=== PATIENT | female | born 1935 | race Caucasian/White ===

== ENCOUNTER 2017-01-27 13:37 | Inpatient (IN) | payer MEDICARE, MEDICAID ==
[2017-01-27 13:38] VITALS: BMI 37.8
--- NOTE | 2017-01-27 14:15 | C.PDOC ---
History Of Present Illness 82 y/o female with a history of renal problems and a PSHx of AAA, presents to the ED with c/o left flank pain that occurred last night and SOB that began today. Pt notes walking 3 blocks this morning and could not walk back home because of SOB. Pt was seen in Dr. Mon office and was thought to have new onset atrial fibrillation with a rate 110/120. Pt was sent to the ED for admittance and to be referred to Dr. Arvizu the cardiologists. Pt notes SOB on exertion, heaviness on chest that is worse with exertion, but denies peripheral swelling, dizziness, lightheadedness, abdominal pain, fever, chills, or any other complaints. It is noted that she did hae an admission here for atrial fibrillation with SOB last year. She was discharged on Cardiazem, ASA and Plavix at that time. Time Seen by Provider: 01/27/17 13:42 Chief Complaint (Nursing): Respiratory Distress History Per: Patient History/Exam Limitations: no limitations Onset/Duration Of Symptoms: Days Current Symptoms Are (Timing): Still Present Severity: Mild Associated Symptoms: denies: Fever, Chills, Dizziness, Light-headedness, Other ( Abdominal pain) Past Medical History Reviewed: Historical Data, Nursing Documentation, Vital Signs Vital Signs: Last Vital Signs Temp 98.4 F 01/27/17 13:56 Pulse 103 H 01/27/17 13:56 Resp 16 01/27/17 13:56 BP 135/59 L 01/27/17 13:56 Pulse Ox 98 01/27/17 14:51 - Medical History PMH: Diverticulitis, HTN, Hypercholesterolemia, Hyperlipidemia, Chronic Kidney Disease (ONE KIDNEY) Surgical History: Cholecystectomy Other Surgeries: Left Nephrectomy - [facility] Procedures DX ULTRASOUND-HEAD/NECK (05/09/15) PERCUTAN NEEDLE BX OF THYROID GLAND (05/09/15) Family History: States: Unknown Family Hx - Social History Hx Alcohol Use: No Hx Substance Use: No - Immunization History Hx Tetanus Toxoid Vaccination: Yes Hx Influenza Vaccination: Yes Hx Pneumococcal Vaccination: Yes Review Of Systems Except As Marked, All Systems Reviewed And Found Negative. Constitutional: Negative for: Fever, Chills Cardiovascular: Positive for: Chest Pain (heaviness in chest on exertion) Respiratory: Positive for: Shortness of Breath, SOB with Excertion Neurological: Negative for: Dizziness, Other (Lightheadedness) Physical Exam - Physical Exam Appears: Non-toxic, No Acute Distress Skin: Warm, Dry Head: Atraumatic, Normacephalic Eye(s): bilateral: Normal Inspection Chest: Symmetrical Cardiovascular: Rhythm Irregular (Irregularly irregular of 110) Respiratory: Rales (Equal with bibasilar rales), No Rhonchi, No Wheezing Gastrointestinal/Abdominal: Soft, No Tenderness Extremity: No Pedal Edema (No peripheral edema) ED Course And Treatment - Laboratory Results Result Diagrams: 01/27/17 14:46 01/27/17 14:37 Lab Interpretation: Abnormal (Elevated WBC 12.6, BNP 1760, Troponin normal.) ECG: Interpreted By Me ECG Rhythm: Atrial Fibrillation, ST/T Changes (nonspecific) ECG Interpretation: No Acute Changes Rate From EC O2 Sat by Pulse Oximetry: 98 (Room air) Pulse Ox Interpretation: Normal - Radiology CXR: Interpreted by Me, Read By Radiologist CXR Interpretation: Yes: Infiltrates (RLL) Reevaluation Time: 15:54 Reassessment Condition: Improved (Patient remains comfortable) - Physician Consult Information Time Consulting Physician Contacted: 15:54 Physician Contacted: Daniel Baer Outcome Of Conversation: Patient to be admitted for mild CHF and adjustment of medication for Afib. Medical Decision Making Medical Decision Making: Plan: -EKG -CXR -Labs -IV fluids -Reassess and disposition Disposition - Disposition Disposition: HOSPITALIZED Disposition Time: 15:55 Condition: STABLE - POA Present On Arrival: None - Clinical Impression Clinical Impression: Afib, Congestive heart failure - Scribe Statement The provider has reviewed the documentation as recorded by the Scribpatel faust All medical record entries made by the Poloibe were at my direction and personally dictated by me. I have reviewed the chart and agree that the record accurately reflects my personal performance of the history, physical exam, medical decision making, and the department course for this patient. I have also personally directed, reviewed, and agree with the discharge instructions and disposition.
--- NOTE | 2017-01-27 14:23 | RAD ---
PROCEDURE: CHEST RADIOGRAPH, 1 VIEW HISTORY: Palpations COMPARISON: 01/15/2016 FINDINGS: LUNGS: The lungs are hyperinflated and there are chronic changes in both lungs. PLEURA: No pneumothorax or pleural fluid seen. CARDIOVASCULAR: There is persistent mild cardiomegaly and mild pulmonary venous congestion. OSSEOUS STRUCTURES: No significant abnormalities. VISUALIZED UPPER ABDOMEN: Normal. OTHER FINDINGS: None. IMPRESSION: COPD. No active pulmonary disease. Persistent mild cardiomegaly and mild pulmonary venous congestion.
[2017-01-27 14:51] LABS: BASO # 0.1 K/uL (0.0-0.2); BASO % 0.8 % (0.0-2.0); EOS # 0.1 K/uL (0.0-0.7); EOS % 0.5 % (0.0-4.0); HEMATOCRIT 36.9 % (34.0-47.0); LYMPH # 2.4 K/uL (1.0-4.3); LYMPH % 19.4 % (20.0-40.0); MEAN CELL VOLUME 83.7 fL (81.0-99.0); MEAN CORPUSCULAR HEMOGLOBIN 27.1 pg (27.0-31.0); MEAN CORPUSCULAR HGB CONC 32.4 g/dL (33.0-37.0); MEAN PLATELET VOLUME 8.8 fL (7.2-11.7); MONO # 0.7 K/uL (0.0-0.8); MONO % 5.5 % (0.0-10.0); RED CELL DISTRIBUTION WIDTH 15.6 % (11.5-14.5); WHITE BLOOD COUNT 12.3 K/uL (4.8-10.8)
[2017-01-27 14:54] LABS: INR 0.9; PARTIAL THROMBOPLASTIN TIME 23 SECONDS (21-34)
[2017-01-27 15:02] LABS: CHLORIDE 100 mmol/L (98-107)
[2017-01-27 15:03] LABS: POTASSIUM 4.2 mmol/L (3.6-5.2); SODIUM 142 mmol/L (132-148)
[2017-01-27 15:05] LABS: ALKALINE PHOSPHATASE 118 U/L (38-126); ALT/SGPT 26 U/L (9-52); AST/SGOT 21 U/L (14-36); BILIRUBIN,TOTAL 0.5 mg/dL (0.2-1.3); BLOOD UREA NITROGEN 12 mg/dL (7-17); CARBON DIOXIDE 32 mmol/L (22-30); GFR AFRICAN-AMERICAN > 60; GLUCOSE,RANDOM 82 mg/dL (65-105); TOTAL PROTEIN 7.6 g/dL (6.3-8.3)
[2017-01-27 15:22] LABS: T4 9.04 ug/dL (5.5-11.0)
[2017-01-27 15:51] LABS: T3 UPTAKE 38.1 % (23.0-41.0)
[2017-01-27] MEDS ORDERED: cefTRIAXone IV 1 gm in Dextros 50 ML IVPB ONE ×2 (15:57→16:13)
[2017-01-27] MEDS ORDERED: Azithromycin 500mg/250ML NS 250 ML IV SCH (16:00)
[2017-01-27] MEDS ORDERED: Azithromycin 500mg/250ML NS 250 ML IVPB ONE (16:13)
--- NOTE | 2017-01-27 16:21 | CP.PCM.HP ---
<Mackenzie Zhu - Last Filed: 01/27/17 17:20> History of Present Illness - History of Present Illness History of Present Illness: 82 y/o female with a history of renal problems and a PSHx of AAA, presents to the ED with c/o left flank pain that occurred last night and SOB that began today. Pt notes walking 3 blocks this morning and could not walk back home because of SOB. Pt was seen in Dr. Strange's office and was thought to have new onset atrial fibrillation with a rate 110/120. Per prior records patient has documented Afib. She is only on aspirin, no further anticoagulation. Pt was sent to the ED for admittance and to be referred to Dr. Arvizu the cardiologists. She admits to some pain in her back on the right side. Patient is a poor historian and was not able to answer more specific questions. Pt notes SOB on exertion, heaviness on chest that is worse with exertion, but denies peripheral swelling, dizziness, lightheadedness, abdominal pain, fever, chills, or any other complaints. HPI - HTN, HLD, AAA, one has one kdiney, A fib, CHF, COPD Surg - cholecystectomy, AAA repair Meds - Cardizem 120mg daily, Omeprazole 20mg daily, Plavix 75 mg PO daily, Lasix 40 mg PO daily, Breo 100/25, Simvastatin 20mg po daily, Nitro sublingual, Losartan 100mg PO daily All - NKDA Fam hx - DM Social - denies drugs, tobacco, alcohol, lives with daughter but the number she provided was incorrect Present on Admission - Present on Admission Any Indicators Present on Admission: No Review of Systems - Constitutional Constitutional: absent: Chills, Fever - EENT Eyes: absent: Blurred Vision, Change in Vision Ears: absent: Dizziness - Cardiovascular Cardiovascular: absent: Chest Pain, Chest Pain at Rest - Respiratory Respiratory: Cough, Dyspnea, Dyspnea on Exertion - Gastrointestinal Gastrointestinal: absent: Abdominal Pain, Constipation, Diarrhea, Nausea, Vomiting - Genitourinary Genitourinary: absent: Change in Urinary Stream, Difficulty Urinating - Neurological Neurological: absent: Numbness, Weakness Past Patient History - Infectious Disease Hx of Infectious Diseases: None - Past Medical History & Family History Past Medical History?: Yes - Past Social History Smoking Status: Never Smoked - CARDIAC Hx Hypercholesterolemia: Yes Hx Hypertension: Yes - PULMONARY Hx Respiratory Disorders: No - NEUROLOGICAL Hx Neurological Disorder: Yes (BRAIN ANNURYSM) - HEENT Hx HEENT Problems: No - RENAL Hx Chronic Kidney Disease: Yes (ONE KIDNEY) - ENDOCRINE/METABOLIC Hx Endocrine Disorders: Yes - HEMATOLOGICAL/ONCOLOGICAL Hx Blood Disorders: No - INTEGUMENTARY Hx Dermatological Problems: No - MUSCULOSKELETAL/RHEUMATOLOGICAL Hx Falls: No - GASTROINTESTINAL Hx Diverticulitis: Yes - GENITOURINARY/GYNECOLOGICAL Hx Genitourinary Disorders: Yes Other/Comment: one kidney - PSYCHIATRIC Hx Substance Use: No - SURGICAL HISTORY Hx Cholecystectomy: Yes - ANESTHESIA Hx Anesthesia: Yes Hx Anesthesia Reactions: No Hx Malignant Hyperthermia: No Meds Allergies/Adverse Reactions: Allergies Allergy/AdvReac Type Severity Reaction Status Date / Time No Known Allergies Allergy Verified 01/27/17 13:57 Physical Exam - Constitutional Appears: Non-toxic, No Acute Distress - Head Exam Head Exam: NORMAL INSPECTION, NORMOCEPHALIC - Eye Exam Eye Exam: EOMI, Normal appearance, PERRL Pupil Exam: NORMAL ACCOMODATION - ENT Exam ENT Exam: Mucous Membranes Moist - Respiratory Exam Respiratory Exam: Decreased Breath Sounds (more on R side), NORMAL BREATHING PATTERN. absent: Accessory Muscle Use, Respiratory Distress - Cardiovascular Exam Cardiovascular Exam: Irregular Rhythm, +S1, +S2. absent: JVD - GI/Abdominal Exam GI & Abdominal Exam: Normal Bowel Sounds, Soft. absent: Distended, Firm, Guarding, Tenderness Additional comments: Obese. Surgical scars present - Extremities Exam Extremities exam: Positive for: pedal edema. Negative for: calf tenderness Additional comments: 2+ edema b/l legs - Back Exam Back exam: NORMAL INSPECTION. absent: CVA tenderness (L), CVA tenderness (R), paraspinal tenderness - Neurological Exam Neurological exam: Alert, Oriented x3 - Psychiatric Exam Psychiatric exam: Normal Affect, Normal Mood - Skin Skin Exam: Dry, Intact, Normal Color, Warm Results - Vital Signs Recent Vital Signs: Last Vital Signs Temp 98.4 F 01/27/17 13:56 Pulse 103 H 01/27/17 13:56 Resp 16 01/27/17 13:56 BP 135/59 L 01/27/17 13:56 Pulse Ox 98 01/27/17 15:55 - Labs Result Diagrams: 01/27/17 14:46 01/27/17 14:37 Labs: Laboratory Results - last 24 hr 01/27/17 01/27/17 14:37 14:46 WBC 12.3 H D RBC 4.41 Hgb 11.9 Hct 36.9 MCV 83.7 MCH 27.1 MCHC 32.4 L RDW 15.6 H Plt Count 236 MPV 8.8 Neut % (Auto) 73.8 Lymph % (Auto) 19.4 L Dickinson % (Auto) 5.5 Eos % (Auto) 0.5 Baso % (Auto) 0.8 Neut # 9.1 H Lymph # 2.4 Dickinson # 0.7 Eos # 0.1 Baso # 0.1 PT 10.7 INR 0.9 APTT 23 D-Dimer, Quantitative < 200 Sodium 142 Potassium 4.2 Chloride 100 Carbon Dioxide 32 H Anion Gap 14 BUN 12 Creatinine 0.8 Est GFR ( Amer) > 60 Est GFR (Non-Af Amer) > 60 Random Glucose 82 Calcium 9.0 Total Bilirubin 0.5 AST 21 ALT 26 Alkaline Phosphatase 118 Troponin I < 0.0120 NT-Pro-B Natriuret Pep 1760 H Total Protein 7.6 Albumin 3.7 Globulin 3.9 Albumin/Globulin Ratio 1.0 Thyroxine (T4) 9.04 T3 Uptake 38.1 TSH 3rd Generation 0.60 Assessment & Plan - Assessment and Plan (Free Text) Assessment: Pneumonia Xray - possible RLL infiltrate Zithromax 500 mg IVPB daily Rocephin 1 gram IBPB daily Duonebs prn SOB f/u mycoplasma, legionella, strep WBC 12.3, afebrile f/u blood cultures f/u UA f/u sputum culture f/u am labs, procalcitonin NC o2 - patient saturating low 90s,/high 80s but desaturates when she is asked to moved BIPAP prn Congestive heart failure, exacerbation f/u Echo Trop negative x 1, will trend EKG - Afib rate 100, no acute changes BNP - 1760 Chest X ray - cardiomegaly, mild venous chest congestion, possible infiltrate daily weights, monitor ins and outs Losartan 100mg PO daily Lasix 40 mg PO daily ASA 81 mg PO daily Plavix 75 mg po daily Atrial Fibrillation Rate controlled Cardiology consulted, Dr. Arvizu, help appreciated Cardizem 120 mg PO daily ASA 81 mg PO daily EKG - Afib rate 100, no acute changes Patient not on anticoagulation at home f/u am labs COPD O2 via NC f/u ABG Advair 250/50 Duonebs prn Hypertension Monitor BP Continue home losartan Hyperlipidemia f/u lipid panel Crestor 10mg PO HS Prophylactic Measures Pepcid 20mg PO bid Heart healthy diet Call placed to Daughter at 5:30 PM but number did not work. Will reattempt tomorrow. <Daniel Baer - Last Filed: 01/28/17 09:31> Results - Vital Signs Recent Vital Signs: Last Vital Signs Temp 98.4 F 01/27/17 13:56 Pulse 103 H 01/27/17 13:56 Resp 16 01/27/17 13:56 BP 135/59 L 01/27/17 13:56 Pulse Ox 98 01/27/17 15:55 - Labs Result Diagrams: 01/28/17 06:04 01/28/17 06:04 Labs: Laboratory Results - last 24 hr 01/27/17 18:13 Puncture Site Lra pCO2 50 H pO2 105 H HCO3 30.2 H ABG pH 7.42 ABG Total CO2 33.9 H ABG O2 Saturation 99.4 H ABG Base Excess 6.8 H ABG Hemoglobin 11.2 L ABG Carboxyhemoglobin 2.2 H POC ABG HHb (Measured) 0.6 ABG Methemoglobin 1.6 Amrit Test Pos A-a O2 Difference 61.0 Respiratory Index 0.6 Hgb O2 Saturation 95.5 Liter Flow 3.0 FiO2 32.0 Attending/Attestation - Attestation I have personally seen and examined this patient.: Yes I have fully participated in the care of the patient.: Yes I have reviewed all pertinent clinical information: Yes Notes (Text): 01/28/17 09:31 Patient was seen and examined at bedside with the resident Patient is started on treatment for pneumonia We will request cardiology evaluation for a to fibrillation We will follow up recommendations of cardiology I discussed the plan of care with the resident and agree with the above assessment and plan by the resident
[2017-01-27 18:16] LABS: ABG ALLEN TEST POS; ARTERIAL BLOOD HGB O2 SAT 95.5 % (95.0-98.0); CARBOXYHEMOGLOBIN 2.2 % (0.5-1.5); DRAW SITE LRA; HHB 0.6 % (0.0-5.0); METHEMOGLOBIN 1.6 % (0.0-3.0)
--- NOTE | 2017-01-27 18:52 | CP.PCM.CON ---
History of Present Illness - History of Present Illness History of Present Illness: Patient is a 82 year old female with PMH HTN hypercholesterolemia who presents with progressive dyspnea. Patient states symptoms began about 2 weeks ago, and the patient developed progression of her symptoms. The patient was found to be in atrial fibrillation. The patient has no recollection of atrial fibrillation. She denies chest pain at presnt. Review of Systems - Constitutional Constitutional: absent: As Per HPI, Anorexia, Chills, Daytime Sleepiness, Excessive Sweating, Fatigue, Fever, Frequent Falls, Headache, Increased Appetite , Lethargy, Malaise, Night Sweats, Snoring, Sleep Apnea, Weight Gain, Weight Loss, Weakness, Other - EENT Eyes: absent: As Per HPI, Blind Spots, Blurred Vision, Change in Vision, Decreased Night Vision, Diplopia, Discharge, Dry Eye, Exophthalmos, Floaters, Irritation, Itchy Eyes, Loss of Peripheral Vision, Pain, Photophobia, Requires Corrective Lenses, Sees Flashes, Spots in Vision, Tunnel Vision, Other Visual Disturbances, Loss of Vision, Other Ears: absent: As Per HPI, Decreased Hearing, Ear Discharge, Ear Pain, Tinnitus, Abnormal Hearing, Disequilibrium, Dizziness, Other Nose/Mouth/Throat: absent: As Per HPI, Epistaxis, Nasal Congestion, Nasal Discharge, Nasal Obstruction, Nasal Trauma, Nose Pain, Post Nasal Drip, Sinus Pain, Sinus Pressure, Bleeding Gums, Change in Voice, Dental Pain, Dry Mouth, Dysphagia, Halitosis, Hoarsness, Lip Swelling, Mouth Lesions, Mouth Pain, Odynophagia, Sore Throat, Throat Swelling, Tongue Swelling, Facial Pain, Neck Pain, Neck Mass, Other - Breasts Breasts: absent: As Per HPI, Change in Shape, Mass, Pain, Nipple Discharge, Nipple Inversion, Skin Changes, Swelling, Other - Cardiovascular Cardiovascular: Dyspnea - Respiratory Respiratory: Dyspnea - Genitourinary Genitourinary: absent: As Per HPI, Change in Urinary Stream, Difficulty Urinating, Dysuria, Flank Pain, Hematuria, Pyuria, Nocturia, Urinary Incontinence, Urinary Frequency, Urinary Hesitance, Urinary Urgency, Voiding Freq/Small Amts, Freq UTI, Hx Renal/Bladder Calculi, Hx /Renal Surgery, Bladder Distension, Other - Musculoskeletal Musculoskeletal: absent: As Per HPI, Abnormal Gait, Arthralgias, Atrophy, Back Pain, Deformity, Joint Swelling, Limited Range of Motion, Loss of Height, Muscle Cramps, Muscle Weakness, Myalgias, Neck Pain, Numbness, Radiating Pain into Limb, Stiffness, Tingling, Other - Integumentary Integumentary: absent: As Per HPI, Acne, Alopecia, Bleeding Lesions, Change in Hair, Change in Nails, Change in Pigmentation, Changing Lesions, Dry Skin, Erythema, Furuncle, Hirsutism, Lesions, New Lesions, Non-Healing Lesions, Photosensitivity, Pruritus, Rash, Skin Pain, Skin Ulcer, Sores, Striae, Swelling , Unusual Bruising, Wounds, Jaundice, Other - Neurological Neurological: absent: As Per HPI, Abnormal Gait, Abnormal Hearing, Abnormal Movements, Abnormal Speech, Behavioral Changes, Burning Sensations, Confusion, Convulsions, Disequilibrium, Dizziness, Numbness, Focal Weakness, Frequent Falls , Headaches, Lack of Coordination, Loss of Vision, Memory Loss, Paresthesias, Radicular Pain, Restless Legs, Sensory Deficit, Syncope, Tingling, Tremor, Vertigo, Weakness, Other Visual Disturbances, Other - Psychiatric Psychiatric: absent: As Per HPI, Abnormal Sleep Pattern, Anhedonia, Anxiety, Auditory Hallucinations, Behavioral Changes, Change in Appetite, Change in Libido, Confusion, Depression, Difficulty Concentrating, Hallucinations, Homicidal Ideation, Hopelessness, Irritability, Memory Loss, Mood Swings, Panic Attacks, Paranoia, Suicidal Ideation, Visual Hallucinations, Tactile Hallucinations, Other - Endocrine Endocrine: absent: As Per HPI, Change in Body Appearance, Change in Libido, Cold Intolorance, Deepening of Voice, Excessive Sweating, Fatigue, Flushing, Heat Intolorance, Increase in Ring/Shoe/Hat Size, Palpitations, Polydipsia, Polyphagia, Polyuria, Other - Hematologic/Lymphatic Hematologic: absent: As Per HPI, Easy Bleeding, Easy Bruising, Lymphadenopathy, Other Past Patient History - Infectious Disease Hx of Infectious Diseases: None - Past Medical History & Family History Past Medical History?: Yes - Past Social History Smoking Status: Never Smoked - CARDIAC Hx Hypercholesterolemia: Yes Hx Hypertension: Yes - PULMONARY Hx Respiratory Disorders: No - NEUROLOGICAL Hx Neurological Disorder: Yes (BRAIN ANNURYSM) - HEENT Hx HEENT Problems: No - RENAL Hx Chronic Kidney Disease: Yes (ONE KIDNEY) - ENDOCRINE/METABOLIC Hx Endocrine Disorders: Yes - HEMATOLOGICAL/ONCOLOGICAL Hx Blood Disorders: No - INTEGUMENTARY Hx Dermatological Problems: No - MUSCULOSKELETAL/RHEUMATOLOGICAL Hx Falls: No - GASTROINTESTINAL Hx Diverticulitis: Yes - GENITOURINARY/GYNECOLOGICAL Hx Genitourinary Disorders: Yes Other/Comment: one kidney - PSYCHIATRIC Hx Substance Use: No - SURGICAL HISTORY Hx Cholecystectomy: Yes - ANESTHESIA Hx Anesthesia: Yes Hx Anesthesia Reactions: No Hx Malignant Hyperthermia: No Meds Allergies/Adverse Reactions: Allergies Allergy/AdvReac Type Severity Reaction Status Date / Time No Known Allergies Allergy Verified 01/27/17 13:57 - Medications Medications: Current Medications Albuterol/Ipratropium (Duoneb 3 Mg/0.5 Mg (3 Ml) Ud) 3 ml INH RQ6 PRN PRN Reason: Shortness of Breath Amitriptyline HCl (Elavil) 50 mg PO HS [facility] Aspirin (Aspirin Chewable) 81 mg PO DAILY [facility] Clopidogrel Bisulfate (Plavix) 75 mg PO DAILY [facility] Diltiazem HCl (Cardizem Cd) 120 mg PO DAILY [facility] Famotidine (Pepcid) 20 mg PO BID [facility] Furosemide (Lasix) 40 mg PO DAILY [facility] Heparin Sodium (Porcine) (Heparin) 5,000 units SC Q8H [facility] Azithromycin (Zithromax 500mg In Ns Addvantage) 250 mls @ 166.667 mls/hr IV STAT [facility] Last Admin: 01/27/17 17:04 Dose: 166.667 mls/hr Azithromycin 500 mg/ Sodium (Chloride) 250 mls @ 250 mls/hr IVPB DAILY [facility] Ceftriaxone Sodium 1 gm/ (Sodium Chloride) 100 mls @ 100 mls/hr IVPB DAILY [facility] Losartan Potassium (Cozaar) 100 mg PO DAILY [facility] Fluticasone/Salmeterol (Advair Diskus 250/50) 1 puff INH RQ12 [facility] Physical Exam - Constitutional Appears: Non-toxic - Head Exam Head Exam: NORMAL INSPECTION - Eye Exam Eye Exam: Normal appearance - ENT Exam ENT Exam: Mucous Membranes Moist - Neck Exam Neck exam: Positive for: Full Rom - Respiratory Exam Respiratory Exam: NORMAL BREATHING PATTERN - Cardiovascular Exam Cardiovascular Exam: Irregular Rhythm - GI/Abdominal Exam GI & Abdominal Exam: Normal Bowel Sounds - Rectal Exam Rectal Exam: Deferred - Extremities Exam Extremities exam: Positive for: pedal edema - Back Exam Back exam: NORMAL INSPECTION - Neurological Exam Neurological exam: Alert, Oriented x3 - Psychiatric Exam Psychiatric exam: Normal Affect - Skin Skin Exam: Normal Color Results - Vital Signs Recent Vital Signs: Last Vital Signs Temp 98.4 F 01/27/17 13:56 Pulse 103 H 01/27/17 13:56 Resp 16 01/27/17 13:56 BP 135/59 L 01/27/17 13:56 Pulse Ox 98 01/27/17 15:55 - Labs Result Diagrams: 01/27/17 14:46 01/27/17 14:37 Labs: Laboratory Results - last 24 hr 01/27/17 18:13 Puncture Site Lra pCO2 50 H pO2 105 H HCO3 30.2 H ABG pH 7.42 ABG Total CO2 33.9 H ABG O2 Saturation 99.4 H ABG Base Excess 6.8 H ABG Hemoglobin 11.2 L ABG Carboxyhemoglobin 2.2 H POC ABG HHb (Measured) 0.6 ABG Methemoglobin 1.6 Amrit Test Pos A-a O2 Difference 61.0 Respiratory Index 0.6 Hgb O2 Saturation 95.5 Liter Flow 3.0 FiO2 32.0 - EKG Data EKG Interpreted by: Myself Assessment & Plan (1) Afib Assessment and Plan: uncleasr duration. recommend anticoagulation with lovenox. check echocardiogram. Status: Acute Priority: High (2) Dyspnea Assessment and Plan: will evaluate lV function with echocardiogram Status: Acute (3) HTN (hypertension) Assessment and Plan: will assist with management Status: Chronic Priority: Medium
[2017-01-27 21:21] LABS: RBC URINE < 1 /hpf (0-3); URINE BILIRUBIN NEGATIVE (NEGATIVE); URINE BLOOD NEGATIVE (NEGATIVE); URINE COLOR Yellow (YELLOW); URINE GLUCOSE (UA) NORMAL (Normal); URINE KETONE NEGATIVE (NEGATIVE); URINE LEUKOCYTE ESTERASE NEG Leu/uL (Negative); URINE PROTEIN 1+ mg/dL (NEGATIVE); URINE UROBILINOGEN NORMAL mg/dL (0.2-1.0); WBC URINE 1 /hpf (0-5)
[2017-01-27] MEDS: Enoxaparin 80 mg Syringe SC SCH (21:31)
[2017-01-28 06:23] LABS: BASO # 0.1 K/uL (0.0-0.2); BASO % 0.5 % (0.0-2.0); EOS # 0.1 K/uL (0.0-0.7); EOS % 0.7 % (0.0-4.0); HEMATOCRIT 33.6 % (34.0-47.0); LYMPH # 2.4 K/uL (1.0-4.3); LYMPH % 18.3 % (20.0-40.0); MEAN CELL VOLUME 84.3 fL (81.0-99.0); MEAN CORPUSCULAR HEMOGLOBIN 28.2 pg (27.0-31.0); MEAN CORPUSCULAR HGB CONC 33.5 g/dL (33.0-37.0); MEAN PLATELET VOLUME 8.9 fL (7.2-11.7); MONO # 0.6 K/uL (0.0-0.8); MONO % 4.8 % (0.0-10.0); RED CELL DISTRIBUTION WIDTH 15.4 % (11.5-14.5); WHITE BLOOD COUNT 13.3 K/uL (4.8-10.8)
[2017-01-28 06:38] LABS: CHLORIDE 98 mmol/L (98-107); POTASSIUM 4.2 mmol/L (3.6-5.2); SODIUM 141 mmol/L (132-148)
[2017-01-28 06:40] LABS: BILIRUBIN,TOTAL 0.7 mg/dL (0.2-1.3); CARBON DIOXIDE 32 mmol/L (22-30); CHOLESTEROL 186 mg/dL (0-199); GFR AFRICAN-AMERICAN > 60
[2017-01-28 06:41] LABS: ALB/GLOB RATIO 1.1 (1.0-2.1); ALKALINE PHOSPHATASE 104 U/L (38-126); ALT/SGPT 20 U/L (9-52); AST/SGOT 28 U/L (14-36); BLOOD UREA NITROGEN 12 mg/dL (7-17); GLUCOSE,RANDOM 108 mg/dL (65-105); PHOSPHOROUS 4.6 mg/dL (2.5-4.5); TOTAL PROTEIN 6.8 g/dL (6.3-8.3)
[2017-01-28 06:42] LABS: CALCIUM 8.5 mg/dl (8.6-10.4)
[2017-01-28] MEDS: Albuterol-Ipratrop 3 mg / 0.5 (3 ml) UD INH PRN (08:35)
[2017-01-28] MEDS: Enoxaparin 80 mg Syringe SC SCH ×2 (09:49→21:56)
[2017-01-28] MEDS ORDERED: diltiaZEM 120 mg/24 Hours CD Cap PO SCH (10:00)
[2017-01-28] MEDS: Azithromycin 500 MG in Sodium Chloride 0.9% 250 ML IVPB SCH (11:20)
--- NOTE | 2017-01-28 15:30 | CP.PCM.PN ---
Subjective - Date & Time of Evaluation Date of Evaluation: 01/28/17 Time of Evaluation: 12:20 - Subjective Subjective: patient seen in echo lab. Objective - Vital Signs/Intake and Output Vital Signs (last 24 hours): Temp Pulse Resp BP Pulse Ox 99.5 F 110 H 20 158/94 H 96 01/28/17 07:35 01/28/17 08:44 01/28/17 07:35 01/28/17 09:44 01/28/17 07:35 Intake and Output: 01/28/17 01/28/17 06:59 18:59 Intake Total 240 500 Balance 240 500 - Medications Medications: Current Medications Albuterol/Ipratropium (Duoneb 3 Mg/0.5 Mg (3 Ml) Ud) 3 ml INH RQ6 PRN PRN Reason: Shortness of Breath Last Admin: 01/28/17 08:35 Dose: 3 ml Apixaban (Eliquis) 5 mg PO BID [facility] Aspirin (Aspirin Chewable) 81 mg PO DAILY [facility] Last Admin: 01/28/17 09:45 Dose: 81 mg Clopidogrel Bisulfate (Plavix) 75 mg PO DAILY [facility] Last Admin: 01/28/17 09:44 Dose: 75 mg Diltiazem HCl (Cardizem Cd) 240 mg PO DAILY [facility] Enoxaparin Sodium (Lovenox) 80 mg SC Q12 [facility] Last Admin: 01/28/17 09:49 Dose: 80 mg Famotidine (Pepcid) 20 mg PO BID [facility] Last Admin: 01/28/17 09:45 Dose: 20 mg Furosemide (Lasix) 40 mg PO DAILY [facility] Last Admin: 01/28/17 09:44 Dose: 40 mg Azithromycin 500 mg/ Sodium (Chloride) 250 mls @ 250 mls/hr IVPB DAILY [facility] Last Admin: 01/28/17 11:20 Dose: 250 mls/hr Ceftriaxone Sodium 1 gm/ (Sodium Chloride) 100 mls @ 100 mls/hr IVPB DAILY [facility] Last Admin: 01/28/17 09:46 Dose: 100 mls/hr Losartan Potassium (Cozaar) 100 mg PO DAILY [facility] Last Admin: 01/28/17 09:44 Dose: 100 mg Fluticasone/Salmeterol (Advair Diskus 250/50) 1 puff INH RQ12 [facility] - Labs Labs: 01/28/17 06:04 01/28/17 06:04 PT 10.7 SECONDS (9.7-12.2) 01/27/17 14:37 INR 0.9 01/27/17 14:37 APTT 23 SECONDS (21-34) 01/27/17 14:37 - Constitutional Appears: Non-toxic - Head Exam Head Exam: NORMAL INSPECTION - Eye Exam Eye Exam: Normal appearance - ENT Exam ENT Exam: Mucous Membranes Moist - Neck Exam Neck Exam: Full ROM - Respiratory Exam Respiratory Exam: Decreased Breath Sounds - Cardiovascular Exam Cardiovascular Exam: Irregular Rhythm - GI/Abdominal Exam GI & Abdominal Exam: Normal Bowel Sounds - Rectal Exam Rectal Exam: Deferred - Extremities Exam Extremities Exam: absent: Pedal Edema - Back Exam Back Exam: NORMAL INSPECTION - Neurological Exam Neurological Exam: Alert - Psychiatric Exam Psychiatric exam: Normal Affect - Skin Skin Exam: Normal Color Assessment and Plan (1) Afib Assessment & Plan: will start Eliquis. increase cardizem. echocardiogram reviewed. The left ventricular function i normal, there is biatrial enlargement. The atrial fibrillation is likely chronic. Status: Acute (2) Dyspnea Status: Acute (3) HTN (hypertension) Assessment & Plan: blood pressure control Status: Chronic
[2017-01-28] MEDS: diltiaZEM 240 mg/24 Hours CD Cap PO SCH (17:23)
--- NOTE | 2017-01-28 17:54 | CP.PCM.PN ---
<MarkoMackenzie - Last Filed: 01/28/17 19:30> Subjective - Date & Time of Evaluation Date of Evaluation: 01/28/17 Time of Evaluation: 07:50 - Subjective Subjective: PGY [address] Baer: Patient was seen and examined at bedside this morning. She is more alert and awake today. She states her SOB has improved but she is still coughing and producing phlegm. She denies chest pain, or feeling like her heart is beating fast. She is tolerating her diet and had a BM last night. She is out of bed to chair. She states that her belly is slightly painful "where my hernia is". She has no other complaints such as headache, fevers/chills, N/V, changes in vision, pain or swelling in the extremities, urinary complaints. Objective - Vital Signs/Intake and Output Vital Signs (last 24 hours): Temp Pulse Resp BP Pulse Ox 98.7 F 100 H 20 120/63 99 01/28/17 15:51 01/28/17 15:51 01/28/17 15:51 01/28/17 15:51 01/28/17 15:51 Intake and Output: 01/28/17 01/28/17 06:59 18:59 Intake Total 240 500 Balance 240 500 - Medications Medications: Current Medications Albuterol/Ipratropium (Duoneb 3 Mg/0.5 Mg (3 Ml) Ud) 3 ml INH RQ6 PRN PRN Reason: Shortness of Breath Last Admin: 01/28/17 08:35 Dose: 3 ml Apixaban (Eliquis) 5 mg PO BID [facility] Last Admin: 01/28/17 17:23 Dose: 5 mg Aspirin (Aspirin Chewable) 81 mg PO DAILY [facility] Last Admin: 01/28/17 09:45 Dose: 81 mg Clopidogrel Bisulfate (Plavix) 75 mg PO DAILY [facility] Last Admin: 01/28/17 09:44 Dose: 75 mg Diltiazem HCl (Cardizem Cd) 240 mg PO DAILY [facility] Last Admin: 01/28/17 17:23 Dose: 240 mg Enoxaparin Sodium (Lovenox) 80 mg SC Q12 [facility] Last Admin: 01/28/17 09:49 Dose: 80 mg Famotidine (Pepcid) 20 mg PO BID [facility] Last Admin: 01/28/17 17:23 Dose: 20 mg Furosemide (Lasix) 40 mg PO DAILY [facility] Last Admin: 01/28/17 09:44 Dose: 40 mg Azithromycin 500 mg/ Sodium (Chloride) 250 mls @ 250 mls/hr IVPB DAILY [facility] Last Admin: 01/28/17 11:20 Dose: 250 mls/hr Ceftriaxone Sodium 1 gm/ (Sodium Chloride) 100 mls @ 100 mls/hr IVPB DAILY [facility] Last Admin: 01/28/17 09:46 Dose: 100 mls/hr Losartan Potassium (Cozaar) 100 mg PO DAILY [facility] Last Admin: 01/28/17 09:44 Dose: 100 mg Fluticasone/Salmeterol (Advair Diskus 250/50) 1 puff INH RQ12 [facility] - Labs Labs: 01/28/17 06:04 01/28/17 06:04 PT 10.7 SECONDS (9.7-12.2) 01/27/17 14:37 INR 0.9 01/27/17 14:37 APTT 23 SECONDS (21-34) 01/27/17 14:37 - Constitutional Appears: Non-toxic, No Acute Distress - Head Exam Head Exam: ATRAUMATIC, NORMAL INSPECTION - Eye Exam Eye Exam: EOMI, Normal appearance, PERRL Pupil Exam: NORMAL ACCOMODATION - ENT Exam ENT Exam: Mucous Membranes Moist - Respiratory Exam Respiratory Exam: Decreased Breath Sounds, Rales, NORMAL BREATHING PATTERN. absent: Accessory Muscle Use, Chest Wall Tenderness, Respiratory Distress Additional comments: More R sided, moving air better today, better respiratory effort - Cardiovascular Exam Cardiovascular Exam: REGULAR RHYTHM, +S1, +S2 - GI/Abdominal Exam GI & Abdominal Exam: Soft, Normal Bowel Sounds. absent: Distended, Firm, Guarding Additional comments: obese - Extremities Exam Extremities Exam: Normal Inspection, Pedal Edema. absent: Calf Tenderness - Back Exam Back Exam: NORMAL INSPECTION. absent: CVA tenderness (L), CVA tenderness (R), paraspinal tenderness - Neurological Exam Neurological Exam: Alert, Awake, CN II-XII Intact, Oriented x3 - Psychiatric Exam Psychiatric exam: Normal Affect, Normal Mood - Skin Skin Exam: Dry, Intact, Normal Color, Warm Assessment and Plan - Assessment and Plan (Free Text) Assessment: Pneumonia Xray - possible RLL infiltrate Zithromax 500 mg IVPB daily Rocephin 1 gram IBPB daily Duonebs prn SOB f/u mycoplasma, legionella, strep WBC 12.3, afebrile f/u blood cultures f/u UA f/u sputum culture f/u am labs, procalcitonin NC o2 - patient saturating low 90s,/high 80s but desaturates when she is asked to moved --> improving today BIPAP prn Congestive heart failure, exacerbation Echo - The left ventricular function is normal, there is biatrial enlargement. The atrial fibrillation is likely chronic Trop negative x 3 EKG - Afib rate 100, no acute changes BNP - 1760 Chest X ray - cardiomegaly, mild venous chest congestion, possible infiltrate daily weights, monitor ins and outs Losartan 100mg PO daily Lasix 40 mg PO daily ASA 81 mg PO daily Plavix 75 mg po daily Atrial Fibrillation Rate controlled Cardiology consulted, Dr. Arvizu, help appreciated Cardizem 240 mg PO daily - increased today ASA 81 mg PO daily EKG - Afib rate 100, no acute changes Patient not on anticoagulation at home Will Add Eliquis 5mg PO BID and stop Lovenox f/u am labs COPD O2 via NC ABG ph 7.42, HC03 30.2, p02 105, pC02 50 Advair 250/50 Duonebs prn Hypertension Monitor BP Continue home losartan Hyperlipidemia Lipid panel wnl Crestor 10mg PO HS Prophylactic Measures Pepcid 20mg PO bid Eliquid 5 mg PO BID Heart healthy diet Spoke to patient's relatives today while they were visiting in hospital. Tyra , her daughter was present. She stated that she lives with her mom and helps take care of her. She is very involved in her mother's care. Her mother needs assistance at home with ADLs but is pretty functional and can walk on her own without the assistance of a cane or walker. She states that her mother has a kidney removed over 30 years ago "for an aneurysm and almost ". She also stated they were not aware that the patient has A fib. Patient has been taking asa and plavix at home but not on a blood thinner. 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 No sick contact at home and no recent hospitalizations. She was given the drug discount card for Eliquis. The family is aware of the patient's hospital course and the need to be on Eliquis for AFib. <Daniel Baer M - Last Filed: 01/29/17 13:33> Objective - Vital Signs/Intake and Output Vital Signs (last 24 hours): Temp Pulse Resp BP Pulse Ox 98.6 F 99 H 18 113/76 97 01/29/17 07:30 01/29/17 08:00 01/29/17 07:30 01/29/17 09:42 01/29/17 07:30 Intake and Output: 01/29/17 01/29/17 06:59 18:59 Intake Total 120 Balance 120 - Medications Medications: Current Medications Albuterol/Ipratropium (Duoneb 3 Mg/0.5 Mg (3 Ml) Ud) 3 ml INH RQ6 PRN PRN Reason: Shortness of Breath Last Admin: 01/28/17 08:35 Dose: 3 ml Apixaban (Eliquis) 5 mg PO BID [facility] Last Admin: 01/29/17 10:44 Dose: 5 mg Aspirin (Aspirin Chewable) 81 mg PO DAILY [facility] Last Admin: 01/29/17 09:42 Dose: 81 mg Clopidogrel Bisulfate (Plavix) 75 mg PO DAILY [facility] Last Admin: 01/29/17 09:42 Dose: 75 mg Diltiazem HCl (Cardizem Cd) 240 mg PO DAILY [facility] Last Admin: 01/29/17 09:42 Dose: 240 mg Enoxaparin Sodium (Lovenox) 80 mg SC Q12 [facility] Last Admin: 01/29/17 09:43 Dose: 80 mg Famotidine (Pepcid) 20 mg PO BID [facility] Last Admin: 01/29/17 09:39 Dose: 20 mg Furosemide (Lasix) 40 mg PO DAILY [facility] Last Admin: 01/29/17 09:42 Dose: 40 mg Azithromycin 500 mg/ Sodium (Chloride) 250 mls @ 250 mls/hr IVPB DAILY [facility] Last Admin: 01/29/17 09:33 Dose: 250 mls/hr Ceftriaxone Sodium 1 gm/ (Sodium Chloride) 100 mls @ 100 mls/hr IVPB DAILY [facility] Last Admin: 01/29/17 09:33 Dose: 100 mls/hr Losartan Potassium (Cozaar) 100 mg PO DAILY [facility] Last Admin: 01/29/17 09:43 Dose: 100 mg Fluticasone/Salmeterol (Advair Diskus 250/50) 1 puff INH RQ12 [facility] Last Admin: 01/29/17 08:49 Dose: Not Given - Labs Labs: 01/29/17 05:58 01/29/17 05:58 PT 10.7 SECONDS (9.7-12.2) 01/27/17 14:37 INR 0.9 01/27/17 14:37 APTT 23 SECONDS (21-34) 01/27/17 14:37 Attending/Attestation - Attestation I have personally seen and examined this patient.: Yes I have fully participated in the care of the patient.: Yes I have reviewed all pertinent clinical information, including history, physical exam and plan: Yes Notes (Text): 01/29/17 13:32 Patient was seen and examined at bedside with the resident Shortness of breath is improving Cardiology evaluation seen in appreciated Patient started on anticoagulation I discussed the plan of care with the resident and I agree with the above assessment and plan by the resident
--- NOTE | 2017-01-28 20:43 | CARD ---
APPROVED REPORT EXAM: Two-dimensional and M-mode echocardiogram with Doppler and color Doppler. Other Information Quality : GoodRhythm : INDICATION Dyspnea Atrial Fibrillation Congestive Heart Failure COPD MX OF ABD AAA RISK FACTORS Hypertension Hyperlipidemia M-Mode DIMENSIONS RVDd2.26 (2.1-3.2cm)Left Atrium (MM)4.61 (2.5-4.0cm) IVSd1.05 (0.7-1.1cm)Aortic Root2.26 (2.2-3.7cm) LVDd4.72 (4.0-5.6cm)Aortic Cusp Exc.1.17 (1.5-2.0cm) PWd0.94 (0.7-1.1cm)FS (%) 34 % LVDs3.12 (2.0-3.8cm)LVEF (%)63 (>50%) Aortic Valve AoV Peak Dzxzzaai235.0cm/Zeeshan Peak GR.9mmHg Mitral Valve MV E Jhbokaqg69.1cm/sMV A Pigtugla81.7cm/sE/A ratio3.4 TDI E/Lateral E'0.0E/Medial E'0.0 Tricuspid Valve TR Peak [id number]/sTR Peak Gr.22xbDfRCDK03lfBk LEFT VENTRICLE The left ventricle is normal size. There is normal left ventricular wall thickness. The left ventricular function is normal. The left ventricular ejection fraction is within the normal range. About 55% No regional wall motion abnormalities noted. The left ventricular diastolic function is indeterminate. No left ventricle thrombus noted on this study. There is no ventricular septal defect visualized. There is no left ventricular aneurysm. There is no mass noted in the left ventricle. RIGHT VENTRICLE The right ventricle is normal size. There is normal right ventricular wall thickness. The right ventricular systolic function is normal. ATRIA The left atrium size is mildly dilated. The right atrium size is mildly dilated. The interatrial septum is intact with no evidence for an atrial septal defect. AORTIC VALVE The aortic valve is normal in structure and function. No aortic regurgitation is present. There is no aortic valvular stenosis. There is no aortic valvular vegetation. MITRAL VALVE The mitral valve is normal in structure and function. There is no evidence of mitral valve prolapse. There is no mitral valve stenosis. There is no mitral valve regurgitation noted. TRICUSPID VALVE The tricuspid valve is normal in structure and function. There ismildo tricuspid valve regurgitation noted. Estiamted PA systolic pressure is 53 mm Hg. There is no tricuspid valve prolapse or vegetation. There is no tricuspid valve stenosis. PULMONIC VALVE The pulmonary valve is normal in structure and function. There is no pulmonic valvular regurgitation. There is no pulmonic valvular stenosis. GREAT VESSELS The aortic root is normal in size. The ascending aorta is normal in size. The pulmonary artery is normal. The IVC is mildly dilated and collapses <50% with inspiration. PERICARDIAL EFFUSION The pericardium appears normal. There is no pleural effusion. <Conclusion> Normal LV EF Moderate pulmonary HTN
--- NOTE | 2017-01-28 21:26 | CARD ---
APPROVED REPORT EKG Measurement Heart [id number] <Conclusion> Atrial fibrillation Rare premature ventricular beats Abnormal ECG
--- NOTE | 2017-01-28 21:30 | CARD ---
APPROVED REPORT EKG Measurement Heart [id number] <Conclusion> Atrial fibrillation with rapid ventricular response with premature ventricular or aberrantly conducted complexes Nonspecific T wave abnormality Abnormal ECG
[2017-01-29 06:05] LABS: BASO # 0.1 K/uL (0.0-0.2); BASO % 0.7 % (0.0-2.0); EOS # 0.1 K/uL (0.0-0.7); EOS % 0.8 % (0.0-4.0); HEMATOCRIT 32.5 % (34.0-47.0); LYMPH # 2.8 K/uL (1.0-4.3); LYMPH % 21.5 % (20.0-40.0); MEAN CELL VOLUME 83.9 fL (81.0-99.0); MEAN CORPUSCULAR HEMOGLOBIN 27.2 pg (27.0-31.0); MEAN CORPUSCULAR HGB CONC 32.4 g/dL (33.0-37.0); MEAN PLATELET VOLUME 8.9 fL (7.2-11.7); MONO # 0.9 K/uL (0.0-0.8); MONO % 6.9 % (0.0-10.0); RED CELL DISTRIBUTION WIDTH 15.2 % (11.5-14.5); WHITE BLOOD COUNT 12.9 K/uL (4.8-10.8)
[2017-01-29 06:30] LABS: CHLORIDE 96 mmol/L (98-107); SODIUM 141 mmol/L (132-148)
[2017-01-29 06:31] LABS: POTASSIUM 3.7 mmol/L (3.6-5.2)
[2017-01-29 06:33] LABS: ALB/GLOB RATIO 1.1 (1.0-2.1); ALKALINE PHOSPHATASE 95 U/L (38-126); ALT/SGPT 24 U/L (9-52); AST/SGOT 21 U/L (14-36); BILIRUBIN,TOTAL 0.8 mg/dL (0.2-1.3); BLOOD UREA NITROGEN 16 mg/dL (7-17); CARBON DIOXIDE 32 mmol/L (22-30); GFR AFRICAN-AMERICAN > 60; GLUCOSE,RANDOM 93 mg/dL (65-105); TOTAL PROTEIN 6.8 g/dL (6.3-8.3)
[2017-01-29 06:34] LABS: MAGNESIUM 2.1 mg/dL (1.6-2.3); PHOSPHOROUS 4.3 mg/dL (2.5-4.5)
[2017-01-29] MEDS: Fluticasone-Salmeterol 250-50mcg Diskus INH SCH (08:49)
[2017-01-29] MEDS: Azithromycin 500 MG in Sodium Chloride 0.9% 250 ML IVPB SCH (09:33)
[2017-01-29] MEDS: diltiaZEM 240 mg/24 Hours CD Cap PO SCH (09:42)
[2017-01-29] MEDS: Enoxaparin 80 mg Syringe SC SCH ×2 (09:43→22:19)
--- NOTE | 2017-01-29 11:11 | CP.PCM.PN ---
<Josse Delgado - Last Filed: 01/29/17 11:08> Subjective - Date & Time of Evaluation Date of Evaluation: 01/29/17 Time of Evaluation: 11:08 - Subjective Subjective: PGY-1 note for medicine service Pt seen and examined at bedside. There were no overnight events. Pt denies any fevers, chills, chest pain, nausea or vomiting. However, pt does admit to a heaviness on her chest with some sob. She does feel improved since the day before though as well. Objective - Vital Signs/Intake and Output Vital Signs (last 24 hours): Temp Pulse Resp BP Pulse Ox 98.6 F 99 H 18 113/76 97 01/29/17 07:30 01/29/17 08:00 01/29/17 07:30 01/29/17 09:42 01/29/17 07:30 Intake and Output: 01/29/17 01/29/17 06:59 18:59 Intake Total 120 Balance 120 - Medications Medications: Current Medications Albuterol/Ipratropium (Duoneb 3 Mg/0.5 Mg (3 Ml) Ud) 3 ml INH RQ6 PRN PRN Reason: Shortness of Breath Last Admin: 01/28/17 08:35 Dose: 3 ml Apixaban (Eliquis) 5 mg PO BID [facility] Last Admin: 01/29/17 10:44 Dose: 5 mg Aspirin (Aspirin Chewable) 81 mg PO DAILY [facility] Last Admin: 01/29/17 09:42 Dose: 81 mg Clopidogrel Bisulfate (Plavix) 75 mg PO DAILY [facility] Last Admin: 01/29/17 09:42 Dose: 75 mg Diltiazem HCl (Cardizem Cd) 240 mg PO DAILY [facility] Last Admin: 01/29/17 09:42 Dose: 240 mg Enoxaparin Sodium (Lovenox) 80 mg SC Q12 [facility] Last Admin: 01/29/17 09:43 Dose: 80 mg Famotidine (Pepcid) 20 mg PO BID [facility] Last Admin: 01/29/17 09:39 Dose: 20 mg Furosemide (Lasix) 40 mg PO DAILY [facility] Last Admin: 01/29/17 09:42 Dose: 40 mg Azithromycin 500 mg/ Sodium (Chloride) 250 mls @ 250 mls/hr IVPB DAILY [facility] Last Admin: 01/29/17 09:33 Dose: 250 mls/hr Ceftriaxone Sodium 1 gm/ (Sodium Chloride) 100 mls @ 100 mls/hr IVPB DAILY [facility] Last Admin: 01/29/17 09:33 Dose: 100 mls/hr Losartan Potassium (Cozaar) 100 mg PO DAILY [facility] Last Admin: 01/29/17 09:43 Dose: 100 mg Fluticasone/Salmeterol (Advair Diskus 250/50) 1 puff INH RQ12 [facility] Last Admin: 01/29/17 08:49 Dose: Not Given - Labs Labs: 01/29/17 05:58 01/29/17 05:58 PT 10.7 SECONDS (9.7-12.2) 01/27/17 14:37 INR 0.9 01/27/17 14:37 APTT 23 SECONDS (21-34) 01/27/17 14:37 - Constitutional Appears: Non-toxic, No Acute Distress - Head Exam Head Exam: ATRAUMATIC, NORMOCEPHALIC - Eye Exam Eye Exam: Normal appearance - Respiratory Exam Respiratory Exam: Clear to Ausculation Bilateral, NORMAL BREATHING PATTERN. absent: Rales, Rhonchi, Wheezes - Cardiovascular Exam Cardiovascular Exam: +S1, +S2 - GI/Abdominal Exam GI & Abdominal Exam: Soft, Normal Bowel Sounds - Back Exam Back Exam: NORMAL INSPECTION - Neurological Exam Neurological Exam: Alert, Awake - Skin Skin Exam: Dry, Warm Assessment and Plan - Assessment and Plan (Free Text) Assessment: Pneumonia - Xray - possible RLL infiltrate - Zithromax 500 mg IVPB daily - Rocephin 1 gram IBPB daily - Duonebs prn SOB - mycoplasma, legionella - both negative - strep - pending - f/u - WBC 12.9, afebrile - blood cultures - no growth after 24 hours - UA - 1+ protein - sputum culture - f/u - procalcitonin - <0.05 - NC o2 - patient saturating low 90s,/high 80s but desaturates when she is asked to moved - BIPAP prn Congestive heart failure, exacerbation - Echo - The left ventricular function is normal, there is biatrial enlargement. The atrial fibrillation is likely chronic - Cardiology consulted, Dr. Arvizu, help appreciated - Cardizem 240 mg PO daily - Trop negative x 3 - EKG - Afib rate 100, no acute changes - BNP - 1760 - Chest X ray - cardiomegaly, mild venous chest congestion, possible infiltrate - daily weights, monitor ins and outs - Losartan 100mg PO daily - Lasix 40 mg PO daily - ASA 81 mg PO daily - Plavix 75 mg po daily Atrial Fibrillation - Rate controlled - Cardiology consulted, Dr. Arvizu, help appreciated - Cardizem 240 mg PO daily - Started Eliquis 5mg BID and stop lovenox - Afib likely chronic - ASA 81 mg PO daily - EKG - Afib rate 100, no acute changes - Patient not on anticoagulation at home - f/u am labs COPD - O2 via NC - ABG ph 7.42, HC03 30.2, p02 105, pC02 50 - Advair 250/50 - Duonebs prn Hypertension - Monitor BP - Continue home losartan Hyperlipidemia - Lipid panel wnl - Crestor 10mg PO HS Prophylactic Measures - Pepcid 20mg PO bid - Eliquis 5 mg PO BID - Heart healthy diet Per Dr Zhu (01/28) - Spoke to patient's relatives today while they were visiting in hospital. Tyra, her daughter was present. She stated that she lives with her mom and helps take care of her. She is very involved in her mother's care. Her mother needs assistance at home with ADLs but is pretty functional and can walk on her own without the assistance of a cane or walker. She states that her mother has a kidney removed over 30 years ago "for an aneurysm and almost ". She also stated they were not aware that the patient has A fib. Patient has been taking asa and plavix at home but not on a blood thinner. 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 No sick contact at home and no recent hospitalizations. She was given the drug discount card for Eliquis. The family is aware of the patient's hospital course and the need to be on Eliquis for AFib. <Daniel Baer - Last Filed: 01/29/17 14:37> Objective - Vital Signs/Intake and Output Vital Signs (last 24 hours): Temp Pulse Resp BP Pulse Ox 98.6 F 99 H 18 113/76 97 01/29/17 07:30 01/29/17 08:00 01/29/17 07:30 01/29/17 09:42 01/29/17 07:30 Intake and Output: 01/29/17 01/29/17 06:59 18:59 Intake Total 120 Balance 120 - Medications Medications: Current Medications Albuterol/Ipratropium (Duoneb 3 Mg/0.5 Mg (3 Ml) Ud) 3 ml INH RQ6 PRN PRN Reason: Shortness of Breath Last Admin: 01/28/17 08:35 Dose: 3 ml Apixaban (Eliquis) 5 mg PO BID [facility] Last Admin: 01/29/17 10:44 Dose: 5 mg Aspirin (Aspirin Chewable) 81 mg PO DAILY [facility] Last Admin: 01/29/17 09:42 Dose: 81 mg Clopidogrel Bisulfate (Plavix) 75 mg PO DAILY [facility] Last Admin: 01/29/17 09:42 Dose: 75 mg Diltiazem HCl (Cardizem Cd) 240 mg PO DAILY [facility] Last Admin: 01/29/17 09:42 Dose: 240 mg Enoxaparin Sodium (Lovenox) 80 mg SC Q12 [facility] Last Admin: 01/29/17 09:43 Dose: 80 mg Famotidine (Pepcid) 20 mg PO BID [facility] Last Admin: 01/29/17 09:39 Dose: 20 mg Furosemide (Lasix) 40 mg PO DAILY [facility] Last Admin: 01/29/17 09:42 Dose: 40 mg Azithromycin 500 mg/ Sodium (Chloride) 250 mls @ 250 mls/hr IVPB DAILY [facility] Last Admin: 01/29/17 09:33 Dose: 250 mls/hr Ceftriaxone Sodium 1 gm/ (Sodium Chloride) 100 mls @ 100 mls/hr IVPB DAILY [facility] Last Admin: 01/29/17 09:33 Dose: 100 mls/hr Losartan Potassium (Cozaar) 100 mg PO DAILY [facility] Last Admin: 01/29/17 09:43 Dose: 100 mg Fluticasone/Salmeterol (Advair Diskus 250/50) 1 puff INH RQ12 [facility] Last Admin: 01/29/17 08:49 Dose: Not Given - Labs Labs: 01/29/17 05:58 01/29/17 05:58 PT 10.7 SECONDS (9.7-12.2) 01/27/17 14:37 INR 0.9 01/27/17 14:37 APTT 23 SECONDS (21-34) 01/27/17 14:37 Attending/Attestation - Attestation I have personally seen and examined this patient.: Yes I have fully participated in the care of the patient.: Yes I have reviewed all pertinent clinical information, including history, physical exam and plan: Yes Notes (Text): 01/29/17 14:36 Patient was seen and examined at bedside with the resident during the rounds Patient is awake alert and she is clinically improving Shortness of breath is improving. The cough is also improving . We will continue IV antibiotics for pneumonia patient started on anticoagulation by cardiology for atrial fibrillation Heart rate is controlled with current medication regimen We will continue to observe the patient overnight and likely discharge in the morning if the patient is medically stable
[2017-01-29 17:08] VITALS: RESP 20
--- NOTE | 2017-01-29 19:51 | CP.PCM.PN ---
Subjective - Date & Time of Evaluation Date of Evaluation: 01/29/17 Time of Evaluation: 19:45 - Subjective Subjective: patient feels well. no chest pain. Objective - Vital Signs/Intake and Output Vital Signs (last 24 hours): Temp Pulse Resp BP Pulse Ox 97.2 F L 76 20 123/69 99 01/29/17 16:00 01/29/17 16:00 01/29/17 16:00 01/29/17 16:00 01/29/17 16:00 - Medications Medications: Current Medications Albuterol/Ipratropium (Duoneb 3 Mg/0.5 Mg (3 Ml) Ud) 3 ml INH RQ6 PRN PRN Reason: Shortness of Breath Last Admin: 01/28/17 08:35 Dose: 3 ml Apixaban (Eliquis) 5 mg PO BID [facility] Last Admin: 01/29/17 17:38 Dose: 5 mg Aspirin (Aspirin Chewable) 81 mg PO DAILY [facility] Last Admin: 01/29/17 09:42 Dose: 81 mg Clopidogrel Bisulfate (Plavix) 75 mg PO DAILY [facility] Last Admin: 01/29/17 09:42 Dose: 75 mg Diltiazem HCl (Cardizem Cd) 240 mg PO DAILY [facility] Last Admin: 01/29/17 09:42 Dose: 240 mg Enoxaparin Sodium (Lovenox) 80 mg SC Q12 [facility] Last Admin: 01/29/17 09:43 Dose: 80 mg Famotidine (Pepcid) 20 mg PO BID [facility] Last Admin: 01/29/17 17:38 Dose: 20 mg Furosemide (Lasix) 40 mg PO DAILY [facility] Last Admin: 01/29/17 09:42 Dose: 40 mg Azithromycin 500 mg/ Sodium (Chloride) 250 mls @ 250 mls/hr IVPB DAILY [facility] Last Admin: 01/29/17 09:33 Dose: 250 mls/hr Ceftriaxone Sodium 1 gm/ (Sodium Chloride) 100 mls @ 100 mls/hr IVPB DAILY [facility] Last Admin: 01/29/17 09:33 Dose: 100 mls/hr Losartan Potassium (Cozaar) 100 mg PO DAILY [facility] Last Admin: 01/29/17 09:43 Dose: 100 mg Fluticasone/Salmeterol (Advair Diskus 250/50) 1 puff INH RQ12 [facility] Last Admin: 01/29/17 08:49 Dose: Not Given - Labs Labs: PT 10.7 SECONDS (9.7-12.2) 01/27/17 14:37 INR 0.9 01/27/17 14:37 APTT 23 SECONDS (21-34) 01/27/17 14:37 - Constitutional Appears: Non-toxic - Head Exam Head Exam: NORMAL INSPECTION - Eye Exam Eye Exam: Normal appearance - ENT Exam ENT Exam: Mucous Membranes Moist - Neck Exam Neck Exam: Full ROM - Respiratory Exam Respiratory Exam: Decreased Breath Sounds - Cardiovascular Exam Cardiovascular Exam: Irregular Rhythm - GI/Abdominal Exam GI & Abdominal Exam: Normal Bowel Sounds - Rectal Exam Rectal Exam: Deferred - Extremities Exam Extremities Exam: absent: Pedal Edema - Back Exam Back Exam: NORMAL INSPECTION - Neurological Exam Neurological Exam: Alert - Psychiatric Exam Psychiatric exam: Normal Affect - Skin Skin Exam: Normal Color Assessment and Plan (1) Afib Assessment & Plan: rate controlled. continue cardizem, Eliquis Status: Acute (2) Dyspnea Assessment & Plan: improved Status: Acute (3) HTN (hypertension) Assessment & Plan: contolled Status: Chronic
[2017-01-29] MEDS ORDERED: Magnesium Hydroxide Susp 30 ml UD PO ONE (23:05)
[2017-01-30] MEDS: Albuterol-Ipratrop 3 mg / 0.5 (3 ml) UD INH PRN (00:58)
[2017-01-30 01:16] VITALS: O2SAT 97
[2017-01-30 04:35] VITALS: PULSE 74
--- NOTE | 2017-01-30 06:33 | CARD ---
APPROVED REPORT EKG Measurement Heart [id number] <Conclusion> Atrial fibrillation Abnormal ECG
[2017-01-30] MEDS: Fluticasone-Salmeterol 250-50mcg Diskus INH SCH (08:35)
[2017-01-30 08:37] VITALS: BP 127/69; TEMP 97.9
[2017-01-30 08:39] LABS: BASO # 0.1 K/uL (0.0-0.2); BASO % 0.8 % (0.0-2.0); EOS # 0.2 K/uL (0.0-0.7); EOS % 1.3 % (0.0-4.0); HEMATOCRIT 33.2 % (34.0-47.0); LYMPH # 3.1 K/uL (1.0-4.3); MEAN CELL VOLUME 84.3 fL (81.0-99.0); MEAN CORPUSCULAR HEMOGLOBIN 27.2 pg (27.0-31.0); MEAN CORPUSCULAR HGB CONC 32.2 g/dL (33.0-37.0); MEAN PLATELET VOLUME 9.8 fL (7.2-11.7); MONO # 0.7 K/uL (0.0-0.8); MONO % 5.7 % (0.0-10.0); NRBC % 0.1 % (0.0-2.0); RED CELL DISTRIBUTION WIDTH 15.2 % (11.5-14.5); WHITE BLOOD COUNT 12.9 K/uL (4.8-10.8)
[2017-01-30 08:41] LABS: CHLORIDE 95 mmol/L (98-107)
[2017-01-30 08:42] LABS: POTASSIUM 4.1 mmol/L (3.6-5.2); SODIUM 140 mmol/L (132-148)
[2017-01-30 08:44] LABS: ALKALINE PHOSPHATASE 102 U/L (38-126); ALT/SGPT 20 U/L (9-52); AST/SGOT 31 U/L (14-36); BILIRUBIN,TOTAL 0.6 mg/dL (0.2-1.3); BLOOD UREA NITROGEN 15 mg/dL (7-17); CARBON DIOXIDE 31 mmol/L (22-30); GFR AFRICAN-AMERICAN > 60; TOTAL PROTEIN 7.4 g/dL (6.3-8.3)
[2017-01-30 08:45] LABS: CALCIUM 8.3 mg/dl (8.6-10.4); GLUCOSE,RANDOM 94 mg/dL (65-105); MAGNESIUM 2.5 mg/dL (1.6-2.3); PHOSPHOROUS 3.5 mg/dL (2.5-4.5)
[2017-01-30] MEDS: diltiaZEM 240 mg/24 Hours CD Cap PO SCH (10:06)
[2017-01-30] MEDS: Azithromycin 500 MG in Sodium Chloride 0.9% 250 ML IVPB SCH (10:07)
[2017-01-30] MEDS: Enoxaparin 80 mg Syringe SC SCH (10:28)
[2017-01-30] MEDS ORDERED: POLYETHYLENE GLYCOL 3350 17 GM/Dose PACKET PO ONE (11:15)
--- NOTE | 2017-01-30 14:06 | CP.PCM.DIS ---
<Alan Patel H - Last Filed: 01/30/17 19:42> Provider - Provider Date of Admission: 01/29/17 15:44 Attending physician: Daniel Baer MD Primary care physician: none Consults: Dr. Arvizu Time Spent in preparation of Discharge (in minutes): 30 Hospital Course - Lab Results Lab Results: Most Recent Lab Values WBC 12.9 K/uL (4.8-10.8) H 01/30/17 08:19 RBC 3.94 Mil/uL (3.80-5.20) 01/30/17 08:19 Hgb 10.7 g/dL (11.0-16.0) L 01/30/17 08:19 Hct 33.2 % (34.0-47.0) L 01/30/17 08:19 MCV 84.3 fL (81.0-99.0) 01/30/17 08:19 MCH 27.2 pg (27.0-31.0) 01/30/17 08:19 MCHC 32.2 g/dL (33.0-37.0) L 01/30/17 08:19 RDW 15.2 % (11.5-14.5) H 01/30/17 08:19 Plt Count 208 K/uL (130-400) 01/30/17 08:19 MPV 9.8 fL (7.2-11.7) 01/30/17 08:19 Neut % (Auto) 68.2 % (50.0-75.0) 01/30/17 08:19 Lymph % (Auto) 24.0 % (20.0-40.0) 01/30/17 08:19 [place] % (Auto) 5.7 % (0.0-10.0) 01/30/17 08:19 Eos % (Auto) 1.3 % (0.0-4.0) 01/30/17 08:19 Baso % (Auto) 0.8 % (0.0-2.0) 01/30/17 08:19 Neut # 8.8 K/uL (1.8-7.0) H 01/30/17 08:19 Lymph # 3.1 K/uL (1.0-4.3) 01/30/17 08:19 [place] # 0.7 K/uL (0.0-0.8) 01/30/17 08:19 Eos # 0.2 K/uL (0.0-0.7) 01/30/17 08:19 Baso # 0.1 K/uL (0.0-0.2) 01/30/17 08:19 Differential Comment 01/30/17 08:19 PT 10.7 SECONDS (9.7-12.2) 01/27/17 14:37 INR 0.9 01/27/17 14:37 APTT 23 SECONDS (21-34) 01/27/17 14:37 D-Dimer, Quantitative < 200 ng/mlDDU (0-243) 01/27/17 14:37 Puncture Site Lra 01/27/17 18:13 pCO2 50 mm/Hg (35-45) H 01/27/17 18:13 pO2 105 mm/Hg (80-100) H 01/27/17 18:13 HCO3 30.2 mmol/L (21-28) H 01/27/17 18:13 ABG pH 7.42 (7.35-7.45) 01/27/17 18:13 ABG Total CO2 33.9 mmol/L (22-28) H 01/27/17 18:13 ABG O2 Saturation 99.4 % (95-98) H 01/27/17 18:13 ABG Base Excess 6.8 mmol/L (-2.0-3.0) H 01/27/17 18:13 ABG Hemoglobin 11.2 g/dL (11.7-17.4) L 01/27/17 18:13 ABG Carboxyhemoglobin 2.2 % (0.5-1.5) H 01/27/17 18:13 POC ABG HHb (Measured) 0.6 % (0.0-5.0) 01/27/17 18:13 ABG Methemoglobin 1.6 % (0.0-3.0) 01/27/17 18:13 Amrit Test Pos 01/27/17 18:13 A-a O2 Difference 61.0 mm/Hg 01/27/17 18:13 Respiratory Index 0.6 01/27/17 18:13 Hgb O2 Saturation 95.5 % (95.0-98.0) 01/27/17 18:13 Liter Flow 3.0 01/27/17 18:13 FiO2 32.0 % 01/27/17 18:13 Sodium 140 mmol/L (132-148) 01/30/17 08:19 Potassium 4.1 mmol/L (3.6-5.2) 01/30/17 08:19 Chloride 95 mmol/L (98-107) L 01/30/17 08:19 Carbon Dioxide 31 mmol/L (22-30) H 01/30/17 08:19 Anion Gap 18 (10-20) 01/30/17 08:19 BUN 15 mg/dL (7-17) 01/30/17 08:19 Creatinine 0.8 MG/DL (0.7-1.2) 01/30/17 08:19 Est GFR ( Amer) > 60 01/30/17 08:19 Est GFR (Non-Af Amer) > 60 01/30/17 08:19 POC Glucose (mg/dL) 117 mg/dL (65-110) H 01/27/17 21:05 Random Glucose 94 mg/dL (65-105) 01/30/17 08:19 Calcium 8.3 mg/dl (8.6-10.4) L 01/30/17 08:19 Phosphorus 3.5 mg/dL (2.5-4.5) 01/30/17 08:19 Magnesium 2.5 mg/dL (1.6-2.3) H 01/30/17 08:19 Total Bilirubin 0.6 mg/dL (0.2-1.3) 01/30/17 08:19 AST 31 U/L (14-36) 01/30/17 08:19 ALT 20 U/L (9-52) 01/30/17 08:19 Alkaline Phosphatase 102 U/L (38-126) 01/30/17 08:19 Total Creatine Kinase 47 U/L (30-135) 01/28/17 06:04 CK-MB (Mass) 0.37 ng/mL (0.0-3.38) 01/28/17 06:04 Troponin I < 0.0120 ng/mL (0.00-0.120) 01/27/17 14:37 Troponin I, Quant 0.0160 ng/mL (0.00-0.120) 01/28/17 06:04 NT-Pro-B Natriuret Pep 1760 pg/mL (0-900) H 01/27/17 14:37 Total Protein 7.4 g/dL (6.3-8.3) 01/30/17 08:19 Albumin 3.7 g/dL (3.5-5.0) 01/30/17 08:19 Globulin 3.7 gm/dL (2.2-3.9) 01/30/17 08:19 Albumin/Globulin Ratio 1.0 (1.0-2.1) 01/30/17 08:19 Triglycerides 114 mg/dL (0-149) 01/28/17 06:04 Cholesterol 186 mg/dL (0-199) 01/28/17 06:04 LDL Cholesterol Direct 91 mg/dL (0-129) 01/28/17 06:04 HDL Cholesterol 50 mg/dL (30-70) 01/28/17 06:04 Procalcitonin < 0.05 NG/ML (0.19-0.49) L 01/28/17 06:04 Thyroxine (T4) 9.04 ug/dL (5.5-11.0) 01/27/17 14:37 T3 Uptake 38.1 % (23.0-41.0) 01/27/17 14:37 TSH 3rd Generation 0.60 mIU/L (0.46-4.68) 01/27/17 14:37 Urine Color Yellow (YELLOW) 01/27/17 21:13 Urine Clarity Clear (Clear) 01/27/17 21:13 Urine pH 7.0 (5.0-8.0) 01/27/17 21:13 Ur Specific Adin 1.008 (1.003-1.030) 01/27/17 21:13 Urine Protein 1+ mg/dL (NEGATIVE) H 01/27/17 21:13 Urine Glucose (UA) Normal mg/dL (Normal) 01/27/17 21:13 Urine Ketones Negative mg/dL (NEGATIVE) 01/27/17 21:13 Urine Blood Negative (NEGATIVE) 01/27/17 21:13 Urine Nitrate Negative (NEGATIVE) 01/27/17 21:13 Urine Bilirubin Negative (NEGATIVE) 01/27/17 21:13 Urine Urobilinogen Normal mg/dL (0.2-1.0) 01/27/17 21:13 Ur Leukocyte Esterase Neg [place]/uL (Negative) 01/27/17 21:13 Urine WBC (Auto) 1 /hpf (0-5) 01/27/17 21:13 Urine RBC (Auto) < 1 /hpf (0-3) 01/27/17 21:13 Ur Squamous Epith Cells < 1 /hpf (0-5) 01/27/17 21:13 Ur L.pneumophila Ag Negative (NEGATIVE) 01/27/17 20:54 Mycoplasma pneumon IgM Negative (NEGATIVE) 01/27/17 Unknown - Hospital Course Hospital Course: Initial History 82 y/o female with a history of renal problems and a PSHx of AAA, presents to the ED with c/o left flank pain that occurred last night and SOB that began today. Pt notes walking 3 blocks this morning and could not walk back home because of SOB. Pt was seen in Dr. Straneg's office and was thought to have new onset atrial fibrillation with a rate 110/120. Per prior records patient has documented Afib. She is only on aspirin, no further anticoagulation. Pt was sent to the ED for admittance and to be referred to Dr. Arvizu the cardiologists. She admits to some pain in her back on the right side. Patient is a poor historian and was not able to answer more specific questions. Pt notes SOB on exertion, heaviness on chest that is worse with exertion, but denies peripheral swelling, dizziness, lightheadedness, abdominal pain, fever, chills, or any other complaints. Hospital course Patient admitted to [facility] for shortness of breath and treated for pneumonia and possible CHF. She was ruled for CHF but also diagnosed with Afib as well. She was given anticoaguation therapy and rate control medication as well. She was given 4 days of IV Rocephin and Zithromax. CXR showed Venou congestion and COPD. An echo was preformed showed normal LV fucntion with no diastolic function. Her Lasix was discontinued before discharge. Labs were drawn everyday and patient's vital signs were monitered closely. Patient given Duoneb breathing treatment as well. Discharge Plan Patient to be discharged home per Dr. Baer. Patient WILL NOT TAKE ASPIRIN OR PLAVIX ANYMORE!!! Patient will take Keflex 500mg twice a day for 3 days. She will also take Zithromax 250mg once a day for 3 days. Patient will continue taking Eliquis 5mg twice a day and Cardizem 240mg once a day. Patient will need to follow up with [facility] for post hospital care and for medication refill. Patient will give given script for 30 days of Eliquis and Cardizem Discharge Diagnosis 1. Pneumonia 2. Afib 3. Pulmonary HTN see echo 4. HTN 5. chronic COPD Discharge Exam - Head Exam Head Exam: NORMAL INSPECTION - Eye Exam Eye Exam: Normal appearance Pupil Exam: NORMAL ACCOMODATION - Respiratory Exam Respiratory Exam: Clear to PA & Lateral. absent: Rhonchi, Wheezes - Cardiovascular Exam Cardiovascular Exam: REGULAR RHYTHM, RRR, +S1, +S2. absent: Gallop, Rubs - GI/Abdominal Exam GI & Abdominal Exam: Normal Bowel Sounds, Soft. absent: Tenderness - Extremities Exam Extremities exam: normal inspection - Back Exam Back exam: NORMAL INSPECTION - Psychiatric Exam Psychiatric exam: Normal Affect, Normal Mood - Skin Skin Exam: Normal Color Discharge Plan - Discharge Medications Prescriptions: diltiaZEM CD [Cardizem CD] 240 mg PO DAILY #30 cap Apixaban [Eliquis] 5 mg PO BID #60 tab Cephalexin [cephalexin] 500 mg PO BID #6 cap Azithromycin [Z-Mike] 250 mg PO DAILY #3 tab - Follow Up Plan Condition: STABLE Disposition: HOME/ ROUTINE Instructions: Apixaban (By mouth), Heart Failure (DC), Atrial Fibrillation (DC) , Heart Healthy Diet (DC), Dyspnea (GEN) Additional Instructions: Patient to be discharged home per Dr. Baer. Patient WILL NOT TAKE ASPIRIN OR PLAVIX ANYMORE!!! Patient will take Keflex 500mg twice a day for 3 days. She will also take Zithromax 250mg once a day for 3 days. Patient will continue taking Eliquis 5mg twice a day and Cardizem 240mg once a day. Patient will need to follow up with [facility] for post hospital care and for medication refill. Patient will give given script for 30 days of Eliquis and Cardizem Referrals: [facility] at [facility] [Outside] <Daniel Baer - Last Filed: 01/31/17 13:17> Provider - Provider Date of Admission: 01/29/17 15:44 Attending physician: Daniel Baer MD Hospital Course - Lab Results Lab Results: Most Recent Lab Values WBC 12.9 K/uL (4.8-10.8) H 01/30/17 08:19 RBC 3.94 Mil/uL (3.80-5.20) 01/30/17 08:19 Hgb 10.7 g/dL (11.0-16.0) L 01/30/17 08:19 Hct 33.2 % (34.0-47.0) L 01/30/17 08:19 MCV 84.3 fL (81.0-99.0) 01/30/17 08:19 MCH 27.2 pg (27.0-31.0) 01/30/17 08:19 MCHC 32.2 g/dL (33.0-37.0) L 01/30/17 08:19 RDW 15.2 % (11.5-14.5) H 01/30/17 08:19 Plt Count 208 K/uL (130-400) 01/30/17 08:19 MPV 9.8 fL (7.2-11.7) 01/30/17 08:19 Neut % (Auto) 68.2 % (50.0-75.0) 01/30/17 08:19 Lymph % (Auto) 24.0 % (20.0-40.0) 01/30/17 08:19 [place] % (Auto) 5.7 % (0.0-10.0) 01/30/17 08:19 Eos % (Auto) 1.3 % (0.0-4.0) 01/30/17 08:19 Baso % (Auto) 0.8 % (0.0-2.0) 01/30/17 08:19 Neut # 8.8 K/uL (1.8-7.0) H 01/30/17 08:19 Lymph # 3.1 K/uL (1.0-4.3) 01/30/17 08:19 [place] # 0.7 K/uL (0.0-0.8) 01/30/17 08:19 Eos # 0.2 K/uL (0.0-0.7) 01/30/17 08:19 Baso # 0.1 K/uL (0.0-0.2) 01/30/17 08:19 Differential Comment 04/01/17 08:19 PT 10.7 SECONDS (9.7-12.2) 01/27/17 14:37 INR 0.9 01/27/17 14:37 APTT 23 SECONDS (21-34) 01/27/17 14:37 D-Dimer, Quantitative < 200 ng/mlDDU (0-243) 01/27/17 14:37 Puncture Site Lra 01/27/17 18:13 pCO2 50 mm/Hg (35-45) H 01/27/17 18:13 pO2 105 mm/Hg (80-100) H 01/27/17 18:13 HCO3 30.2 mmol/L (21-28) H 01/27/17 18:13 ABG pH 7.42 (7.35-7.45) 01/27/17 18:13 ABG Total CO2 33.9 mmol/L (22-28) H 01/27/17 18:13 ABG O2 Saturation 99.4 % (95-98) H 01/27/17 18:13 ABG Base Excess 6.8 mmol/L (-2.0-3.0) H 01/27/17 18:13 ABG Hemoglobin 11.2 g/dL (11.7-17.4) L 01/27/17 18:13 ABG Carboxyhemoglobin 2.2 % (0.5-1.5) H 01/27/17 18:13 POC ABG HHb (Measured) 0.6 % (0.0-5.0) 01/27/17 18:13 ABG Methemoglobin 1.6 % (0.0-3.0) 01/27/17 18:13 Amrit Test Pos 01/27/17 18:13 A-a O2 Difference 61.0 mm/Hg 01/27/17 18:13 Respiratory Index 0.6 01/27/17 18:13 Hgb O2 Saturation 95.5 % (95.0-98.0) 01/27/17 18:13 Liter Flow 3.0 01/27/17 18:13 FiO2 32.0 % 01/27/17 18:13 Sodium 140 mmol/L (132-148) 01/30/17 08:19 Potassium 4.1 mmol/L (3.6-5.2) 01/30/17 08:19 Chloride 95 mmol/L (98-107) L 01/30/17 08:19 Carbon Dioxide 31 mmol/L (22-30) H 01/30/17 08:19 Anion Gap 18 (10-20) 01/30/17 08:19 BUN 15 mg/dL (7-17) 01/30/17 08:19 Creatinine 0.8 MG/DL (0.7-1.2) 01/30/17 08:19 Est GFR ( Amer) > 60 01/30/17 08:19 Est GFR (Non-Af Amer) > 60 01/30/17 08:19 POC Glucose (mg/dL) 117 mg/dL (65-110) H 01/27/17 21:05 Random Glucose 94 mg/dL (65-105) 01/30/17 08:19 Calcium 8.3 mg/dl (8.6-10.4) L 01/30/17 08:19 Phosphorus 3.5 mg/dL (2.5-4.5) 01/30/17 08:19 Magnesium 2.5 mg/dL (1.6-2.3) H 01/30/17 08:19 Total Bilirubin 0.6 mg/dL (0.2-1.3) 01/30/17 08:19 AST 31 U/L (14-36) 01/30/17 08:19 ALT 20 U/L (9-52) 01/30/17 08:19 Alkaline Phosphatase 102 U/L (38-126) 01/30/17 08:19 Total Creatine Kinase 47 U/L (30-135) 01/28/17 06:04 CK-MB (Mass) 0.37 ng/mL (0.0-3.38) 01/28/17 06:04 Troponin I < 0.0120 ng/mL (0.00-0.120) 01/27/17 14:37 Troponin I, Quant 0.0160 ng/mL (0.00-0.120) 01/28/17 06:04 NT-Pro-B Natriuret Pep 1760 pg/mL (0-900) H 01/27/17 14:37 Total Protein 7.4 g/dL (6.3-8.3) 01/30/17 08:19 Albumin 3.7 g/dL (3.5-5.0) 01/30/17 08:19 Globulin 3.7 gm/dL (2.2-3.9) 01/30/17 08:19 Albumin/Globulin Ratio 1.0 (1.0-2.1) 01/30/17 08:19 Triglycerides 114 mg/dL (0-149) 01/28/17 06:04 Cholesterol 186 mg/dL (0-199) 01/28/17 06:04 LDL Cholesterol Direct 91 mg/dL (0-129) 01/28/17 06:04 HDL Cholesterol 50 mg/dL (30-70) 01/28/17 06:04 Procalcitonin < 0.05 NG/ML (0.19-0.49) L 01/28/17 06:04 Thyroxine (T4) 9.04 ug/dL (5.5-11.0) 01/27/17 14:37 T3 Uptake 38.1 % (23.0-41.0) 01/27/17 14:37 TSH 3rd Generation 0.60 mIU/L (0.46-4.68) 01/27/17 14:37 Urine Color Yellow (YELLOW) 01/27/17 21:13 Urine Clarity Clear (Clear) 01/27/17 21:13 Urine pH 7.0 (5.0-8.0) 01/27/17 21:13 Ur Specific Adin 1.008 (1.003-1.030) 01/27/17 21:13 Urine Protein 1+ mg/dL (NEGATIVE) H 01/27/17 21:13 Urine Glucose (UA) Normal mg/dL (Normal) 01/27/17 21:13 Urine Ketones Negative mg/dL (NEGATIVE) 01/27/17 21:13 Urine Blood Negative (NEGATIVE) 01/27/17 21:13 Urine Nitrate Negative (NEGATIVE) 01/27/17 21:13 Urine Bilirubin Negative (NEGATIVE) 01/27/17 21:13 Urine Urobilinogen Normal mg/dL (0.2-1.0) 01/27/17 21:13 Ur Leukocyte Esterase Neg [place]/uL (Negative) 01/27/17 21:13 Urine WBC (Auto) 1 /hpf (0-5) 01/27/17 21:13 Urine RBC (Auto) < 1 /hpf (0-3) 01/27/17 21:13 Ur Squamous Epith Cells < 1 /hpf (0-5) 01/27/17 21:13 Ur L.pneumophila Ag Negative (NEGATIVE) 01/27/17 20:54 Mycoplasma pneumon IgM Negative (NEGATIVE) 01/27/17 Unknown Attending/Attestation - Attestation I have personally seen and examined this patient.: Yes I have fully participated in the care of the patient.: Yes I have reviewed all pertinent clinical information, including history, physical exam and plan: Yes Notes (Text): 01/31/17 13:15 Patient was seen and examined at bedside with the resident during the rounds Patient is awake alert not in any acute distress Cough is improving Bilateral lower x-ray swelling is improved significantly We'll discharge the patient home on oral antibiotics I agree with the above discharge note by the resident.
--- NOTE | 2017-02-01 12:58 | PCM.HF ---
Heart Failure Core Measure - Heart Failure Ejection Fraction: 40 % or Greater Left Ventricular Function to be assessed after discharge: No ИВАН Inhibitor Prescribed: No Contraindication/Reason for not providing: Not indicated Beta-Ivet Prescribed: None Contraindication/Reason for not providing: Not indicated Angiotensin II Receptor Ivet Prescribed: No Contraindication/Reason for not providing: Not indicated Contraindication/Reason for not providing: Not indicated Contraindication/Reason for not providing: Not indicated Hydralazine Nitrate Prescribed: No Contraindication/Reason for not providing: Not indicated Implantable Cardioverter Defibrillator Therapy: No Contraindication/Reason for not providing: Not indicated Cardiac Resynchronization Therapy Prescribed: No Contraindication/Reason for not providing: Not indicated - Follow up Will be discharged to: Home Follow Up Date (must be within 7 days from discharge): 02/04/17 Follow Up Time: 09:00
[2017-02-05 20:29] LABS: STREP PNEMONIAE 1 AB IgG 7.3 mcg/mL (()); STREP PNEMONIAE 12 AB IgG <0.3 mcg/mL (()); STREP PNEMONIAE 14 AB IgG 2.1 mcg/mL (()); STREP PNEMONIAE 19 AB IgG 1.1 mcg/mL (()); STREP PNEMONIAE 23 AB IgG <0.3 mcg/mL (()); STREP PNEMONIAE 26 AB IgG 0.7 mcg/mL (()); STREP PNEMONIAE 3 AB IgG <0.3 mcg/mL (()); STREP PNEMONIAE 4 AB IgG 0.4 mcg/mL (()); STREP PNEMONIAE 5 AB IgG 0.3 mcg/mL (()); STREP PNEMONIAE 51 AB IgG <0.3 mcg/mL (()); STREP PNEMONIAE 56 AB IgG 1.9 mcg/mL (()); STREP PNEMONIAE 68 AB IgG 4.6 mcg/mL (()); STREP PNEMONIAE 8 AB IgG 3.6 mcg/mL (()); STREP PNEMONIAE 9 AB IgG 7.9 mcg/mL (())
== END 2017-01-30 13:00 | disposition home or self-care (01) | DRG 194 ==
LOC: C.ER 13:37 → C.9E 15:44 → C.6T 18:46 → C.9E 19:02 → C.6T 19:45 → OBSVTOIN 01-29 15:44
PROVIDERS: ADMIT Internal Medicine; ATTEND Internal Medicine
DX: J18.9 Pneumonia, unspecified organism (principal); I13.0 Hypertensive heart and chronic kidney disease with heart failure and stage 1 through stage 4 chronic kidney disease, or unspecified chronic kidney disease; E11.22 Type 2 diabetes mellitus with diabetic chronic kidney disease; J44.0 Chronic obstructive pulmonary disease with (acute) lower respiratory infection; I50.9 Heart failure, unspecified; I27.2 Other secondary pulmonary hypertension; I48.91 Unspecified atrial fibrillation; E78.00 Pure hypercholesterolemia, unspecified; E78.5 Hyperlipidemia, unspecified; I71.4 Abdominal aortic aneurysm, without rupture; Z79.01 Long term (current) use of anticoagulants; N18.9 Chronic kidney disease, unspecified; Z79.82 Long term (current) use of aspirin